=== PATIENT | female | born 1960 | race Caucasian/White ===

== ENCOUNTER 2017-11-07 08:35 | Inpatient (IN) | payer BC ==
[~2017-11-07] VITALS: Ht 165.1 cm; Wt 82.1 kg
[~2017-11-07 08:35] MED LIST: HCTZ 25MG TAB25 MG PO; LEVOXYL0.05 MG PO; MAG-OX 400400 MG/TAB PO; PAIN RELIEF AD200 MG PO; PRINIVIL5 MG PO; TYLENOL 500MG500 MG PO; VITAMIN B COMPL1 T16 PO; VITAMIN C PUR1000 MG PO; ZINC SULFATE PO
[2017-11-23] VITALS (9 sets, daily range): BP systolic 116–132; BP diastolic 65–80; PULSE 40–63; TEMP 97.4–97.8
[2017-11-23] MEDS ORDERED: LOPRESSOR 225 MG/TAB PO (05:59)
[2017-11-23] MEDS ORDERED: VITAMINC1000TA PO (06:00)
[2017-11-23] MEDS ORDERED: ZINC SULFATE 1566 MG PO (06:00)
[2017-11-23] MEDS ORDERED: MAGNESIUM200 MG PO (06:01)
[2017-11-23] MEDS ORDERED: B COMPLEX #11 TA1 PO (06:02)
[2017-11-23] MEDS ORDERED: FLAX OIL1000 MG PO (06:02)
[2017-11-24 00:15] VITALS: BP 96/56; PULSE 50; TEMP 98.1
[2017-11-24 04:30] VITALS: BP 94/50; PULSE 50
[2017-11-24 06:45] VITALS: BP 106/69; PULSE 49; TEMP 97.6
[2017-11-24 07:03] LABS: HEMATOCRIT 32.6 % (37.0-47.0)
== END 2017-11-24 11:40 | disposition home or self-care (01) | DRG 740 ==
LOC: INPTSU 11-23 05:23 → SURG 11-23 07:30 → OB 11-23 11:00
PROVIDERS: Obstetrics & Gynecology; Surgery
PROC: 0FT44ZZ Resection of Gallbladder, Percutaneous Endoscopic Approach (ICD-10-PCS; 2017-11-23)
PROC: 0JQC3ZZ Repair Pelvic Region Subcutaneous Tissue and Fascia, Percutaneous Approach (ICD-10-PCS; 2017-11-23)
PROC: 0UT9FZZ Resection of Uterus, Via Natural or Artificial Opening With Percutaneous Endoscopic Assistance (ICD-10-PCS; principal; 2017-11-23 07:30)
PROC: 0UT7FZZ Resection of Bilateral Fallopian Tubes, Via Natural or Artificial Opening With Percutaneous Endoscopic Assistance (ICD-10-PCS; 2017-11-23 07:30)
PROC: 0UT2FZZ Resection of Bilateral Ovaries, Via Natural or Artificial Opening With Percutaneous Endoscopic Assistance (ICD-10-PCS; 2017-11-23 07:30)
DX: C54.1 Malignant neoplasm of endometrium (principal); K80.10 Calculus of gallbladder with chronic cholecystitis without obstruction; N81.2 Incomplete uterovaginal prolapse; I10 Essential (primary) hypertension
CPT/HCPCS: A4314; J0690; J1100; J1170; J1885; J2405; J2704; J2710; J3010; J7120